=== PATIENT | female | born 1965 | race Caucasian/White ===

== ENCOUNTER 2016-10-23 11:24 | Inpatient (IN) | payer SELFPAY ==
[~2016-10-23] VITALS: Ht 167.6 cm; Wt 80.9 kg
[2016-10-23 12:52] LABS: Basophils # (auto) 0 uL; Basophils % (auto) 0.1 % (0.0-2.0); CONDITION Y; Eosinophils # (auto) 0 uL; Eosinophils % (auto) 0.3 % (0.0-7.0); Hematocrit 41.5 % (36.0-46.0); Lymphocytes # (auto) 1.2 uL; Lymphocytes % (auto) 10.6 % (10.0-50.0); Mean Corpuscular Hemoglobin 32.1 pg (28.0-32.0); Mean Corpuscular Hgb Conc. 33.8 g/dL (32.0-36.0); Mean Platelet Volume 8.4 fL (7.4-10.4); Monocytes # (auto) 0.5 uL; Monocytes % (auto) 4.1 % (0.0-12.0); Neutrophils # (auto) 9.3 uL; Neutrophils % (auto) 84.9 % (37.0-80.0); Platelet Count (auto) 230 10^3/uL (140-450); White Blood Cell 10.9 10^3/uL (4.4-10.8)
[2016-10-23 13:03] LABS: Albumin 2.9 g/dL (3.4-5.0); BUN/Creatinine Ratio 10.3; Bilirubin, Total 0.2 mg/dL (0.2-1.0); Calcium 8.6 mg/dL (8.5-10.1); Potassium 3.5 mmol/L (3.5-5.1); Total Protein 7.7 g/dL (6.4-8.2)
[2016-10-23 15:06] LABS: Urine Color Yellow (Yellow); Urine Glucose Trace mg/dL (Normal)
[2016-10-23 15:07] LABS: Urine Bilirubin Negative (Negative); Urine Blood Trace /uL (Negative); Urine Ketone Negative (Negative); Urine Nitrite Negative (Negative); Urine Urobilinogen Normal (Negative); Urine pH 5.5 (5.0-8.0)
[2016-10-23 15:09] LABS: Urine Ca Oxalate Crystal FEW (None Seen); Urine Squamous Epithelial Cell MODERATE /hpf (<5)
[2016-10-23 15:11] LABS: Urine RBC 4 /hpf (0 - 4)
[2016-10-23] MEDS ORDERED: SODIUM CHLORIDE 0.9% 1,000 ML IV ONE (17:18)
[2016-10-23] MEDS ORDERED: cefTRIAXone 1GM/50ML D5W 50 ML IV ONE (17:30)
[2016-10-23] MEDS: SODIUM CHLORIDE 0.9% 1,000 ML IV SCH (19:03)
[2016-10-23] MEDS ORDERED: TEMAZEPAM 15 MG CAP PO PRN (19:15)
[2016-10-23] MEDS ORDERED: ACETAMINOPHEN 500 MG TAB PO PRN (19:15)
[2016-10-23] MEDS ORDERED: NITROGLYCERIN 0.4 MG SL TAB SL PRN (19:15)
[2016-10-23] MEDS ORDERED: MORPHINE SULF INJ 2 MG/ML SYRINGE 1ML IV PRN (19:15)
[2016-10-23] MEDS ORDERED: LORazepam 0.5 MG TAB PO PRN (19:15)
[2016-10-23] MEDS ORDERED: HYDROcodone-ACET 5/325MG TAB PO PRN (19:15)
[2016-10-23] MEDS ORDERED: LACTULOSE 20Gm/30ML SOLN PO PRN (19:15)
[2016-10-23] MEDS ORDERED: PROMETHAZINE HCL 25 MG/ML 1ML IV PRN (19:15)
[2016-10-23] MEDS ORDERED: MORPHINE SULFATE 4 MG/ML SYRG IV PRN (19:15)
[2016-10-23] MEDS: CLINDAMYCIN 600MG IV 50 ML IV SCH (23:20)
[2016-10-23] MEDS: FAMOTIDINE 20 MG TAB PO SCH (23:20)
[2016-10-24] VITALS (7 sets, daily range): BP systolic 85–107; BP diastolic 44–65
[2016-10-24] MEDS ORDERED: ALBUAER3 IN (03:08)
[2016-10-24] MEDS: SODIUM CHLORIDE 0.9% 1,000 ML IV SCH ×2 (05:00→15:03)
[2016-10-24] MEDS: CLINDAMYCIN 600MG IV 50 ML IV SCH ×3 (06:22→21:45)
[2016-10-24 07:17] LABS: Basophils # (auto) 0 uL; Basophils % (auto) 0.1 % (0.0-2.0); CONDITION Y; Eosinophils # (auto) 0 uL; Eosinophils % (auto) 0.6 % (0.0-7.0); Hematocrit 35.5 % (36.0-46.0); Hemoglobin 11.9 g/dL (12.2-16.2); Lymphocytes # (auto) 1.5 uL; Lymphocytes % (auto) 25.5 % (10.0-50.0); Mean Corpuscular Hemoglobin 31.9 pg (28.0-32.0); Mean Corpuscular Hgb Conc. 33.6 g/dL (32.0-36.0); Mean Corpuscular Volume 94.9 fL (80.0-100.0); Mean Platelet Volume 8.4 fL (7.4-10.4); Monocytes # (auto) 0.5 uL; Monocytes % (auto) 8.3 % (0.0-12.0); Neutrophils % (auto) 65.5 % (37.0-80.0); Platelet Count (auto) 209 10^3/uL (140-450); Red Cell Distribution Width 14.2 % (11.6-16.0); White Blood Cell 6.1 10^3/uL (4.4-10.8)
[2016-10-24] MEDS: cefTRIAXone 1GM/50ML D5W 50 ML IV SCH (10:31)
[2016-10-24] MEDS: ENOXAPARIN SOD 40 MG/0.4 ML SYRINGE SC SCH (10:31)
[2016-10-24] MEDS: FAMOTIDINE 20 MG TAB PO SCH ×2 (10:32→21:46)
[2016-10-25 04:35] VITALS: BP 105/59
[2016-10-25] MEDS: CLINDAMYCIN 600MG IV 50 ML IV SCH ×3 (06:19→22:25)
[2016-10-25] MEDS: SODIUM CHLORIDE 0.9% 1,000 ML IV SCH ×3 (06:19→22:25)
[2016-10-25 08:51] VITALS: BP 109/66
[2016-10-25] MEDS: FAMOTIDINE 20 MG TAB PO SCH ×2 (10:34→22:25)
[2016-10-25] MEDS: cefTRIAXone 1GM/50ML D5W 50 ML IV SCH (10:34)
[2016-10-25] MEDS: ENOXAPARIN SOD 40 MG/0.4 ML SYRINGE SC SCH (10:34)
[2016-10-25 13:14] VITALS: BP 107/72
[2016-10-25 16:40] VITALS: BP 101/58
[2016-10-25 21:34] VITALS: BP 94/56
[2016-10-26 05:04] VITALS: BP 116/66
[2016-10-26 05:48] LABS: Basophils # (auto) 0 uL; Basophils % (auto) 0.6 % (0.0-2.0); CONDITION Y; Eosinophils # (auto) 0.1 uL; Eosinophils % (auto) 2.2 % (0.0-7.0); Hematocrit 32.9 % (36.0-46.0); Hemoglobin 11.1 g/dL (12.2-16.2); Lymphocytes # (auto) 1.8 uL; Lymphocytes % (auto) 40.8 % (10.0-50.0); Mean Corpuscular Hemoglobin 32.1 pg (28.0-32.0); Mean Corpuscular Hgb Conc. 33.9 g/dL (32.0-36.0); Mean Corpuscular Volume 94.8 fL (80.0-100.0); Mean Platelet Volume 8.2 fL (7.4-10.4); Monocytes # (auto) 0.4 uL; Monocytes % (auto) 9.5 % (0.0-12.0); Neutrophils # (auto) 2.1 uL; Neutrophils % (auto) 46.9 % (37.0-80.0); Platelet Count (auto) 246 10^3/uL (140-450); Red Cell Distribution Width 14.3 % (11.6-16.0); White Blood Cell 4.5 10^3/uL (4.4-10.8)
[2016-10-26] MEDS: CLINDAMYCIN 600MG IV 50 ML IV SCH (05:54)
[2016-10-26 05:59] LABS: Calcium 8.3 mg/dL (8.5-10.1); Potassium 4.1 mmol/L (3.5-5.1)
[2016-10-26 06:01] LABS: BUN/Creatinine Ratio 14.1
[2016-10-26 09:00] VITALS: BP 110/63
[2016-10-26] MEDS: cefTRIAXone 1GM/50ML D5W 50 ML IV SCH (09:28)
[2016-10-26 09:37] VITALS: BP 116/66
== END 2016-10-26 10:30 | disposition home or self-care (01) | DRG 872 ==
LOC: ER 11:27 → TELE 11:28 → CENTRAL 23:57 → TELE-CENTR 23:59
PROVIDERS: ADMIT Internal Medicine; ATTEND Internal Medicine
DX: A41.9 Sepsis, unspecified organism (principal); I28.8 Other diseases of pulmonary vessels; L03.115 Cellulitis of right lower limb; F17.210 Nicotine dependence, cigarettes, uncomplicated; R73.9 Hyperglycemia, unspecified; J44.9 Chronic obstructive pulmonary disease, unspecified
CPT/HCPCS: 36415; 71020; 73590; 80048; 80053; 81001; 81025; 83735; 84443; 85025; 85652; 87040; 93005; 93971; 96365; J0696; J3490